=== PATIENT | male | born 1945 | race Caucasian/White ===

== ENCOUNTER 2021-08-05 11:51 | Inpatient (IN) | payer MEDICARE ==
[~2021-08-05] VITALS: Ht 167.6 cm; Wt 67.6 kg
[~2021-08-05 11:51] MED LIST: ? BP MED; ADVIL PRN; ASPI81CH PO; ASPI81EC; ASPI81EC PO; Cleocin HCl300 MG PO; DIAZ5 PO; HYDACE10B PO; HYDCHL12.5 PO; Norco 5-325 Ta1 EACH PO; OXYACE5T PO; [UNRECOGNIZED DRUG - REMARK]
[2021-08-05 12:29] LABS: Source, Urine Voided
[2021-08-05 12:33] LABS: Appearance, Urine Clear (Clear); Bilirubin, Urine Neg (Neg); Blood, Urine 1+ (Neg); Color, Urine Yellow (P-Yellow); Glucose Qualitative, Urine Neg (Neg); Ketones, Urine Neg (Neg); Leukocyte Esterase, Urine Neg (Neg); Nitrite, Urine Neg (Neg); Protein, Urine 2+ (Neg); Specific Gravity, Urine 1.015 (1.003-1.022); Urobilinogen, Urine NORM (Normal); pH, Urine 6.5 (5.0-8.0)
[2021-08-05 12:33] LABS: BASOPHILS ABSOLUTE AUTO 0.05 K/mm3 (0.00-0.23); BASOPHILS PERCENT AUTO 1 % (0-2); EOSINOPHILS ABSOLUTE AUTO 0.35 K/mm3 (0.00-0.68); EOSINOPHILS PERCENT AUTO 3 % (0-6); Hematocrit 45.5 % (37.0-53.0); Hemoglobin 14.9 g/dL (13.5-17.5); IMMATURE GRAN ABSOLUTE AUTO 0.06 K/mm3 (0.00-0.10); IMMATURE GRAN PERCENT AUTO 1 % (0-1); LYMPHOCYTES ABSOLUTE AUTO 1.54 K/mm3 (0.84-5.20); LYMPHOCYTES PERCENT AUTO 14 % (21-46); MONOCYTES ABSOLUTE AUTO 0.89 K/mm3 (0.16-1.47); MONOCYTES PERCENT AUTO 8 % (4-13); Mean Corpuscular HGB 30.7 pg (26.0-34.0); Mean Corpuscular HGB Conc 32.7 g/dL (31.5-36.5); Mean Corpuscular Volume 94 fL (80-100); Mean Platelet Volume 10.3 fL (9.1-12.4); NEUTROPHILS ABSOLUTE AUTO 7.88 K/mm3 (1.96-9.15); NEUTROPHILS PERCENT AUTO 73 % (41-73); Platelet Count 259 K/mm3 (150-400); RDW Coefficient Variation 13.5 % (11.7-14.2); RDW Standard Deviation 46.4 fL (35.1-46.3); Red Blood Cell Count 4.86 M/mm3 (4.30-5.90); White Blood Cell Count 10.77 K/mm3 (4.00-11.30)
[2021-08-05 12:44] LABS: Alanine Aminotransfer (ALT/SGP 25 U/L (12-78); Albumin, Blood 3.4 g/dL (3.4-5.0); Albumin/Globulin Ratio 0.8 (0.8-1.8); Alk Phos 73 U/L (50-136); Anion Gap 3 mmol/L (6-16); Aspartate Aminotrans (AST/SGOT 27 U/L (12-37); Bilirubin, Total 0.5 mg/dL (0.1-1.0); Blood Urea Nitrogen 19 mg/dL (8-24); Bun/Creatinine Ratio 17.8 (12.0-20.0); CO2, Blood 30 mmol/L (21-32); Calcium, Blood 9.3 mg/dL (8.5-10.1); Chloride, Blood 103 mmol/L (98-108); Creatinine, Blood 1.07 mg/dL (0.60-1.20); Globulin, Blood 4.5 g/dL (2.2-4.0); Glomerular Filtration Rate >60 (60-); Glucose, Blood 98 mg/dL (70-99); Potassium, Blood 4.2 mmol/L (3.5-5.5); Sodium, Blood 136 mmol/L (136-145); Total Protein, Blood 7.9 g/dL (6.4-8.2)
[2021-08-05 13:03] LABS: Red Blood Cells, Urine 0-2 /hpf (0-2); Squamous Epithelial Cells Rare /hpf (Few)
[2021-08-05 13:05] LABS: Bacteria Rare /hpf
[2021-08-05 15:31] LABS: International Normalized Ratio 0.99; Prothrombin Time Results 10.4 Sec (9.7-11.5)
--- NOTE | 2021-08-05 18:04 | NUR ---
1715 RECEIVED PT TO RM 359 VIA W/C FROM ER. PT ADMITTED FOR ACUTE CVA. RECEVIED REPORT FROM GRAY MENDEZ. PT WITH SUBJECTIVE NEURO CHANGES; L FOOT AND LH HAVING LESS COORDINATION THAN NORMAL, RESULTING IN FALL AT HOME. CT SHOWING ACUTE AND CHRONIC CHANGES WITH CAROTID @ 90% OCCLUSSION. PT IS A&O. PER PT AND REPORT, PT'S TODAY. PT REPORTED PROVIDING HEAVY CARE FOR HIS PAST FEW MONTHS. PT WITH BPH, HAVING DIFFICULTY VOIDING. SBA TO BTHRM USING FWW. HX HTN, WITH BP'S IN ER > 200 SBP. PER ER NURSE, NO TX FOR PERMISSIVE HTN. PT ADMITTED OBS. DR VELEZ NOTIFIED FOR DIET; REG DIET ORDERED. PT DENIED FURTHER NEEDS AT THIS TIME. PT NOW RESTING QUIETLY. CALL LT IN REACH.
--- NOTE | 2021-08-06 04:18 | NUR ---
SUMMARY NO NEW CHANGES NOTED. PT CONTINUES TO BE IMPULSIVE AT TIMES. PT ABLE TO AMBULATE TO BATHROOM WITH FWW. PT DENIES ANY SOB OR CX PAIN. PT HAS SLEPT T/O SHIFT. PT CURRENTLY SLEEPING IN NO DISTRESS. CALL LIGHT IN REACH AND BED ALARM ON.
[2021-08-06 04:56] LABS: BASOPHILS ABSOLUTE AUTO 0.06 K/mm3 (0.00-0.23); BASOPHILS PERCENT AUTO 1 % (0-2); EOSINOPHILS PERCENT AUTO 5 % (0-6); Hematocrit 47.8 % (37.0-53.0); Hemoglobin 15.9 g/dL (13.5-17.5); IMMATURE GRAN ABSOLUTE AUTO 0.06 K/mm3 (0.00-0.10); IMMATURE GRAN PERCENT AUTO 1 % (0-1); LYMPHOCYTES ABSOLUTE AUTO 1.28 K/mm3 (0.84-5.20); LYMPHOCYTES PERCENT AUTO 15 % (21-46); MONOCYTES ABSOLUTE AUTO 0.82 K/mm3 (0.16-1.47); MONOCYTES PERCENT AUTO 9 % (4-13); Mean Corpuscular HGB 30.4 pg (26.0-34.0); Mean Corpuscular HGB Conc 33.3 g/dL (31.5-36.5); Mean Corpuscular Volume 91 fL (80-100); Mean Platelet Volume 10.1 fL (9.1-12.4); NEUTROPHILS ABSOLUTE AUTO 6.18 K/mm3 (1.96-9.15); NEUTROPHILS PERCENT AUTO 70 % (41-73); Platelet Count 259 K/mm3 (150-400); RDW Coefficient Variation 13.3 % (11.7-14.2); RDW Standard Deviation 45.6 fL (35.1-46.3); Red Blood Cell Count 5.23 M/mm3 (4.30-5.90)
[2021-08-06 05:15] LABS: Anion Gap 6 mmol/L (6-16); Blood Urea Nitrogen 21 mg/dL (8-24); Bun/Creatinine Ratio 21.3 (12.0-20.0); CO2, Blood 27 mmol/L (21-32); Calcium, Blood 9.3 mg/dL (8.5-10.1); Chloride, Blood 102 mmol/L (98-108); Creatinine, Blood 0.99 mg/dL (0.60-1.20); Glomerular Filtration Rate >60 (60-); Glucose, Blood 114 mg/dL (70-99); Magnesium, Blood 2.1 mg/dL (1.6-2.4); Potassium, Blood 4.3 mmol/L (3.5-5.5); Sodium, Blood 135 mmol/L (136-145)
[2021-08-06 09:20] LABS: CHOL/HDL RATIO 3.7; Cholesterol 190 mg/dL (50-200); HDL Cholesterol 51 mg/dL (>39); LDL/HDL RATIO 2.4; Low Density Lipoprotein Chol 120 mg/dL (0-110); Triglycerides 93 mg/dL (30-160); Very Low Density Lipoprot Chol 18 mg/dL (6-32)
--- NOTE | 2021-08-06 16:16 | NUR ---
Shift Summary A/Ox3, pleasant/cooperative, impulsive. Was evaluated by PT this shift, patient independent in room. Had shower, tolerated well. Ambulating in hallway with FWW independently. Patient notified son RE hospital admission, son resides in town. C/O mild numbness to L hand, otherwise, fairly normal. L floor person slightly weaker than R floor person. No speech deficits. Calls appropriately for needs. No acute changes, WCTM.
--- NOTE | 2021-08-06 18:09 | NUR ---
DNR Patient requesting to be DNR. Discussed details of Full code vs DNR. Explained chest compression, possibility of aspirating stomach contents and having pneumonia, intubation, etc.. Patient verbalizes just wanting to be left alone if heart was to stop. Dr. Edmondson notified. Received orders for Palliative Care consult and change code status to DNR. Band verified with Miracle MENDEZ, placed to R wrist.
--- NOTE | 2021-08-07 06:25 | NUR ---
RELIEF CAPTAIN SUMMARY ADMITTED FOR ACUTE CVA WITH WEAKNESS ON THE LEFT. PT IS A DNR. PLAN FOR DISCHARGE HOME TODAY. PT HAS BEEN INDEPENDENT TO THE BATHROOM WITHOUT DIFFICULTY. STEADY GAIT. PT DENIES ANY CONCERNS.
[2021-08-07] MEDS ORDERED: ATOR40TA PO (11:05)
[2021-08-07] MEDS ORDERED: HYDCHL25 PO (11:06)
[2021-08-07] MEDS ORDERED: CLOP75 PO (11:06)
--- NOTE | 2021-08-07 12:13 | NUR ---
DISCHARGE SUMMARY PATIENT DISCHARGED TO HOME. PATIENT ALERT AND ORIENTED THIS SHIFT. PATIENT INDEPENDENT IN THE ROOM AND AMBULATING INDEPENDENTLY WITH FWW IN THE HALLWAY. PATIENT DEMONSTRATES STRENGTH IN THE LEFT EXTREMETIES, STATES THEY ARE MUCH IMPROVED. DISCHARGE AND MEDICATION INSTRUCTIONS REVIEWED WITH PATIENT. PATIENT STATES NO QUESTIONS AT THIS TIME. PATIENT'S SON TO THE ROOM FOR DISCHARGE. IV REMOVED PRIOR TO DISCHARGE. PATIENT TO VEHICLE VIA WHEELCHAIR.
== END 2021-08-07 11:55 | disposition home or self-care (01) | DRG 65 ==
LOC: ER 11:51 → MEDS 15:40
PROVIDERS: Emergency Medicine; Internal Medicine; ADMIT Internal Medicine
DX: I63.9 Cerebral infarction, unspecified (principal); G81.94 Hemiplegia, unspecified affecting left nondominant side; I10 Essential (primary) hypertension; I65.21 Occlusion and stenosis of right carotid artery; I48.0 Paroxysmal atrial fibrillation; Z95.820 Peripheral vascular angioplasty status with implants and grafts; Z88.0 Allergy status to penicillin; Z88.8 Allergy status to other drugs, medicaments and biological substances; Z79.82 Long term (current) use of aspirin; D17.9 Benign lipomatous neoplasm, unspecified; F17.210 Nicotine dependence, cigarettes, uncomplicated; Z71.6 Tobacco abuse counseling; Z23 Encounter for immunization; R29.810 Facial weakness; G89.29 Other chronic pain; M54.40 Lumbago with sciatica, unspecified side; Z98.1 Arthrodesis status
CPT/HCPCS: 36415; 70450; 70496; 70498; 71046; 80048; 80053; 80061; 81001; 83735; 83880; 85025; 85610; 85730; 93005; 93010; 97161; 99285-25; A9270; G0480; Q9967

== ENCOUNTER → 2021-10-14 | Outpatient (CLI) | payer MEDICARE ==
[~2021-10-14] MED LIST changes: +ATOR40TA PO; +CLOP75 PO; +HYDCHL25 PO
[2021-10-14 12:57] LABS: BASOPHILS ABSOLUTE AUTO 0.09 K/mm3 (0.00-0.23); BASOPHILS PERCENT AUTO 1 % (0-2); EOSINOPHILS ABSOLUTE AUTO 0.62 K/mm3 (0.00-0.68); EOSINOPHILS PERCENT AUTO 5 % (0-6); Hematocrit 38.2 % (37.0-53.0); Hemoglobin 12.8 g/dL (13.5-17.5); IMMATURE GRAN ABSOLUTE AUTO 0.29 K/mm3 (0.00-0.10); IMMATURE GRAN PERCENT AUTO 2 % (0-1); LYMPHOCYTES ABSOLUTE AUTO 1.65 K/mm3 (0.84-5.20); LYMPHOCYTES PERCENT AUTO 14 % (21-46); MONOCYTES ABSOLUTE AUTO 1.08 K/mm3 (0.16-1.47); MONOCYTES PERCENT AUTO 9 % (4-13); Mean Corpuscular HGB 30.8 pg (26.0-34.0); Mean Corpuscular HGB Conc 33.5 g/dL (31.5-36.5); Mean Corpuscular Volume 92 fL (80-100); Mean Platelet Volume 9.6 fL (9.1-12.4); NEUTROPHILS PERCENT AUTO 69 % (41-73); Platelet Count 415 K/mm3 (150-400); RDW Coefficient Variation 13.4 % (11.7-14.2); Red Blood Cell Count 4.16 M/mm3 (4.30-5.90); White Blood Cell Count 12.13 K/mm3 (4.00-11.30)
[2021-10-14 13:13] LABS: Alanine Aminotransfer (ALT/SGP 22 U/L (12-78); Albumin, Blood 3.4 g/dL (3.4-5.0); Albumin/Globulin Ratio 0.9 (0.8-1.8); Alk Phos 91 U/L (40-126); Anion Gap 8 mmol/L (6-16); Aspartate Aminotrans (AST/SGOT 16 U/L (12-37); Bilirubin, Total 0.4 mg/dL (0.1-1.0); Blood Urea Nitrogen 16 mg/dL (8-24); Bun/Creatinine Ratio 14.5 (12.0-20.0); CO2, Blood 30 mmol/L (21-32); Calcium, Blood 9.4 mg/dL (8.5-10.1); Chloride, Blood 97 mmol/L (98-108); Glomerular Filtration Rate >60 (60-); Glucose, Blood 119 mg/dL (70-99); Potassium, Blood 4.7 mmol/L (3.5-5.5); Sodium, Blood 135 mmol/L (136-145); Total Protein, Blood 7.4 g/dL (6.4-8.2)
[2021-10-14 13:17] LABS: Troponin I <0.017 ng/mL (0.000-0.040)
== END | disposition home or self-care (01) ==
LOC: LAB SHORT 12:50
PROVIDERS: Physician Assistant
DX: R07.9 Chest pain, unspecified (principal)
CPT/HCPCS: 80053; 83880; 84484; 85025

== ENCOUNTER 2021-11-22 21:50 | Emergency (ER) | payer MEDICARE ==
[~2021-11-22] VITALS: Ht 167.6 cm; Wt 74.4 kg
== END 2021-11-22 22:20 | disposition home or self-care (01) ==
LOC: ER 21:50
DX: R33.9 Retention of urine, unspecified (principal); I10 Essential (primary) hypertension; F17.210 Nicotine dependence, cigarettes, uncomplicated; Z79.82 Long term (current) use of aspirin; Z79.899 Other long term (current) drug therapy; Z88.8 Allergy status to other drugs, medicaments and biological substances
CPT/HCPCS: 51702; 99283-25

== ENCOUNTER 2022-02-21 10:06 | Day surgery (SDC) | payer MEDICARE ==
[~2022-02-21] VITALS: Ht 167.6 cm; Wt 73.0 kg
[~2022-02-21 10:06] MED LIST changes: +ELIQUIS5 M2 PO; +GLIP5 PO; +METF500 PO; +METO25ER PO; +Prinivil10 MG PO
[2022-02-21 11:28] LABS: BASOPHILS ABSOLUTE AUTO 0.06 K/mm3 (0.00-0.23); BASOPHILS PERCENT AUTO 1 % (0-2); EOSINOPHILS ABSOLUTE AUTO 0.77 K/mm3 (0.00-0.68); EOSINOPHILS PERCENT AUTO 7 % (0-6); Hematocrit 45.8 % (37.0-53.0); Hemoglobin 15.2 g/dL (13.5-17.5); IMMATURE GRAN ABSOLUTE AUTO 0.05 K/mm3 (0.00-0.10); IMMATURE GRAN PERCENT AUTO 1 % (0-1); LYMPHOCYTES ABSOLUTE AUTO 1.63 K/mm3 (0.84-5.20); LYMPHOCYTES PERCENT AUTO 15 % (21-46); MONOCYTES ABSOLUTE AUTO 0.69 K/mm3 (0.16-1.47); MONOCYTES PERCENT AUTO 6 % (4-13); Mean Corpuscular HGB 30.3 pg (26.0-34.0); Mean Corpuscular HGB Conc 33.2 g/dL (31.5-36.5); Mean Corpuscular Volume 91 fL (80-100); Mean Platelet Volume 10.1 fL (9.1-12.4); NEUTROPHILS ABSOLUTE AUTO 7.76 K/mm3 (1.96-9.15); NEUTROPHILS PERCENT AUTO 71 % (41-73); Platelet Count 356 K/mm3 (150-400); RDW Coefficient Variation 13.1 % (11.7-14.2); Red Blood Cell Count 5.01 M/mm3 (4.30-5.90); White Blood Cell Count 10.96 K/mm3 (4.00-11.30)
[2022-02-21 11:50] LABS: International Normalized Ratio 0.98; Prothrombin Time Results 10.3 Sec (9.7-11.5)
[2022-02-21 12:27] LABS: Bun/Creatinine Ratio 25.5 (12.0-20.0); Calcium, Blood 9.6 mg/dL (8.5-10.1); Creatinine, Blood 1.1 mg/dL (0.60-1.20); Potassium, Blood 4.5 mmol/L (3.5-5.5)
--- NOTE | 2022-02-21 14:12 | NUR ---
PT ARRIVED BACK TO RECOVERY ROOM IN BED. RIGHT FEMORAL GROIN SITE SOFT NON-TENDER WITH NO HEMATOMA, NO PULSATILE BLEEDING AND INTACT DRESSING. R PT DOPPLER PULSE. PT DENIES CHEST PAIN. CALL LIGHT IN REACH.
--- NOTE | 2022-02-21 14:39 | NUR ---
PT BROUGHT TO RECOVERY ROOM VIA GURNEY IN SUPINE POSITION, RIGHT FEMORAL ARTERIAL SITE APPEARS SOFT NON TENDER WITH NO BLEEDING OR OOZING NOTED. TRANSPARENT TEGADERM INTACT, DOPPLER PULSES TO RLE BOTH DP/PT. FOOT APPEARS COOL TO TOUCH, TIPS OF TOES APPEAR TO BE BLUE AND LATERAL SIDE OF FOOT. IKER KO RN COMPLETED PHYSICAL PREP THIS MORNING, STATED THAT FOOT APPEARS TO LOOK THE SAME. WARM BLANKET WRAPPED AROUND BOTH FEET. LEFT FOOT ALSO APPEARS TO HAVE BLUE COLOR AND COOL TO TOUCH, NO WOUNDS PRESENT. WILL CONTINUE TO MONITOR FOR CHANGES. CALL LIGHT IN REACH. SON UPDATED ON DISCHARGE INFORMATION. PT TOLERATED PO FLUIDS WITH NO DIFFICULTIES.
--- NOTE | 2022-02-21 15:26 | NUR ---
HOB RAISED TO 90 DEGREES, RIGHT GROIN SITE REMAINS SOFT NON TENDER. DRESSING STILL INTACT. PT PROVIDED WITH MEAL TRAY, TOLERATED WITH NO DIFFICULTIES. VSS. CALL LIGHT IN REACH. WILL CONTINUE TO MONITOR SITE. BLE REMAIN SAME LAST NOTED BY THIS RN.
--- NOTE | 2022-02-21 15:44 | NUR ---
DR PAZ UPDATED ABOUT INCREASED BP, VERBAL ORDER RECIEVED TO GIVE ORETIC 25 MG PO NOW, LISINOPRIL 10 MG PO NOW, TOPROL XL 25 MG PO NOW, AND HYDRALAZINE 5 MG IV NOW.
--- NOTE | 2022-02-21 16:13 | NUR ---
PT UP OUT OF BED, AMBULATES WITH CANE SLOWLY, RIGHT GROIN SITE REMAINS SOFT WITH NO BLEEDING OR OOZING NOTED. PT SITS IN CHAIR WHILE DRESSING SELF WITH LIMITED ASSISTANCE.
--- NOTE | 2022-02-21 16:31 | NUR ---
BP RECHECKED. PT VERBALIZED UNDERSTANDING OF D/C INSTRUCTIONS. PAPERWORK PROVIDED IN FOLDER. SON ARRIVED TO DRIVE PT HOME, ENCOURAGED TO FOLLOW UP WITH PROVIDER NEEDED OR WITH ANY QUESTIONS/CONCERNS. IV REMOVED FROM LAC WITH CATH INTACT, PRESSURE DRESSING APPLIED. TAKEN OUT TO PRIVATE VEHICLE WITH NO ACUTE DISTRESS NOTED. RIGHT GROIN SITE REMAINED SOFT NON TENDER WITH NO PAIN, DRESSING INTACT.
== END 2022-02-21 16:33 | disposition home or self-care (01) ==
LOC: MHTC 10:06
PROVIDERS: Radiology Diagnostic Radiology
DX: E11.51 Type 2 diabetes mellitus with diabetic peripheral angiopathy without gangrene (principal); I70.213 Atherosclerosis of native arteries of extremities with intermittent claudication, bilateral legs; I12.9 Hypertensive chronic kidney disease with stage 1 through stage 4 chronic kidney disease, or unspecified chronic kidney disease; E11.22 Type 2 diabetes mellitus with diabetic chronic kidney disease; N18.30 Chronic kidney disease, stage 3 unspecified; F17.200 Nicotine dependence, unspecified, uncomplicated; Z86.73 Personal history of transient ischemic attack (TIA), and cerebral infarction without residual deficits; Z88.8 Allergy status to other drugs, medicaments and biological substances
CPT/HCPCS: 37220; 37227; 75625; 75716; 75774; 76937; 80048; 85025; 85347; 85610; 99152; 99153; A9270; C1714; C1725; C1760; C1769; C1874; C1887; C1894; C2623; J0360; J1644; J2250; J3010; J7030; J7040; Q9967

== ENCOUNTER 2022-03-07 10:44 | Day surgery (SDC) | payer MEDICARE ==
[~2022-03-07] VITALS: Ht 167.6 cm; Wt 70.0 kg
[~2022-03-07 10:44] MED LIST changes: +Chantix1 MG PO
[2022-03-07 11:30] LABS: BASOPHILS ABSOLUTE AUTO 0.07 K/mm3 (0.00-0.23); BASOPHILS PERCENT AUTO 1 % (0-2); EOSINOPHILS ABSOLUTE AUTO 0.58 K/mm3 (0.00-0.68); EOSINOPHILS PERCENT AUTO 5 % (0-6); Hematocrit 41.6 % (37.0-53.0); Hemoglobin 13.5 g/dL (13.5-17.5); IMMATURE GRAN ABSOLUTE AUTO 0.07 K/mm3 (0.00-0.10); IMMATURE GRAN PERCENT AUTO 1 % (0-1); LYMPHOCYTES ABSOLUTE AUTO 1.47 K/mm3 (0.84-5.20); LYMPHOCYTES PERCENT AUTO 13 % (21-46); MONOCYTES ABSOLUTE AUTO 0.75 K/mm3 (0.16-1.47); MONOCYTES PERCENT AUTO 7 % (4-13); Mean Corpuscular HGB 30.3 pg (26.0-34.0); Mean Corpuscular HGB Conc 32.5 g/dL (31.5-36.5); Mean Corpuscular Volume 94 fL (80-100); Mean Platelet Volume 9.5 fL (9.1-12.4); NEUTROPHILS ABSOLUTE AUTO 8.35 K/mm3 (1.96-9.15); NEUTROPHILS PERCENT AUTO 74 % (41-73); Platelet Count 383 K/mm3 (150-400); RDW Coefficient Variation 13.2 % (11.7-14.2); RDW Standard Deviation 45.4 fL (35.1-46.3); Red Blood Cell Count 4.45 M/mm3 (4.30-5.90); White Blood Cell Count 11.29 K/mm3 (4.00-11.30)
[2022-03-07 11:40] LABS: International Normalized Ratio 1.02; Prothrombin Time Results 10.7 Sec (9.7-11.5)
[2022-03-07 11:41] LABS: Bun/Creatinine Ratio 15.6 (12.0-20.0); Calcium, Blood 9.2 mg/dL (8.5-10.1); Creatinine, Blood 1.09 mg/dL (0.60-1.20); Potassium, Blood 4.3 mmol/L (3.5-5.5)
--- NOTE | 2022-03-07 13:55 | NUR ---
PT TO RECOVERY ROOM POST PROCEDURE. PT DROWSY, BUT EASILY ROUSABLE, ANSWERING QUESTIONS APPROPRIATELY; DENIES PAIN POST PROCEDURE. MONITOR AFIB 70'S, B/P 153/87, AFEBRILE, SPO2 96% RA. L GROIN NO SWELLING/HEMATOMA, TEGADERM DRSG INTACT; ANGIO SEAL DEPLOYED, LLE PULSES DP 2+ PT DOP, RLE PULSES 1+ X 2.
--- NOTE | 2022-03-07 15:05 | NUR ---
PT'S HOB ELEVATED, SITE REMAINS UNCHANGED. PT EATING LUNCH WITHOUT ISSUE.
--- NOTE | 2022-03-07 16:15 | NUR ---
PT AMB AROUND RECOVERY ROOM WITHOUT ISSUE, SITE UNCHANGED. PT DRESSED SELF WITHOUT ISSUE, SITE UNCHANGED; IV REMOVED-CANNULA INTACT.
--- NOTE | 2022-03-07 16:30 | NUR ---
PT AND SON RECEIVED DISCHARGE INSTRUCTIONS, MED LIST AND AFTER CARE INSTRUCTIONS; VERBALIZED GOOD UNDERSTANDING. PT LEFT FACILITY VIA W/C, CONDITION STABLE.
== END 2022-03-07 16:21 | disposition home or self-care (01) ==
LOC: MHTC 10:44
PROVIDERS: Radiology Diagnostic Radiology
DX: E11.51 Type 2 diabetes mellitus with diabetic peripheral angiopathy without gangrene (principal); I70.213 Atherosclerosis of native arteries of extremities with intermittent claudication, bilateral legs; E11.22 Type 2 diabetes mellitus with diabetic chronic kidney disease; I12.9 Hypertensive chronic kidney disease with stage 1 through stage 4 chronic kidney disease, or unspecified chronic kidney disease; N18.30 Chronic kidney disease, stage 3 unspecified; F17.200 Nicotine dependence, unspecified, uncomplicated; Z79.52 Long term (current) use of systemic steroids; Z79.84 Long term (current) use of oral hypoglycemic drugs; Z79.01 Long term (current) use of anticoagulants
CPT/HCPCS: 37225; 75716; 75774; 76937; 80048; 85025; 85347; 85610; 93005; 93010; 99152; 99153; A9270; C1714; C1725; C1760; C1769; C1887; C1894; C2623; J1644; J2250; J3010; J7030; J7040; Q9967

== ENCOUNTER 2023-01-01 02:35 | Inpatient (IN) | payer MEDICARE ==
[~2023-01-01] VITALS: Ht 167.6 cm; Wt 65.8 kg
[2023-01-01 03:14] LABS: BASOPHILS ABSOLUTE AUTO 0.05 K/mm3 (0.00-0.23); BASOPHILS PERCENT AUTO 0 % (0-2); EOSINOPHILS PERCENT AUTO 2 % (0-6); Hematocrit 37.7 % (37.0-53.0); Hemoglobin 12.1 g/dL (13.5-17.5); IMMATURE GRAN ABSOLUTE AUTO 0.07 K/mm3 (0.00-0.10); IMMATURE GRAN PERCENT AUTO 1 % (0-1); LYMPHOCYTES ABSOLUTE AUTO 0.84 K/mm3 (0.84-5.20); LYMPHOCYTES PERCENT AUTO 6 % (21-46); MONOCYTES ABSOLUTE AUTO 0.92 K/mm3 (0.16-1.47); MONOCYTES PERCENT AUTO 6 % (4-13); Mean Corpuscular HGB 29.5 pg (26.0-34.0); Mean Corpuscular HGB Conc 32.1 g/dL (31.5-36.5); Mean Corpuscular Volume 92 fL (80-100); Mean Platelet Volume 10.3 fL (9.1-12.4); NEUTROPHILS ABSOLUTE AUTO 12.54 K/mm3 (1.96-9.15); NEUTROPHILS PERCENT AUTO 85 % (41-73); Platelet Count 274 K/mm3 (150-400); RDW Standard Deviation 47.8 fL (35.1-46.3); White Blood Cell Count 14.72 K/mm3 (4.00-11.30)
[2023-01-01 03:14] LABS: Source, Urine Foley catheter
[2023-01-01 03:16] LABS: Bilirubin, Urine Neg (Neg); Blood, Urine 2+ (Neg); Glucose Qualitative, Urine Neg (Neg); Ketones, Urine Neg (Neg); Leukocyte Esterase, Urine 3+ (Neg); Nitrite, Urine Pos (Neg); Protein, Urine 4+ (Neg); Specific Gravity, Urine 1.015 (1.003-1.022); Urobilinogen, Urine NORM (Normal)
[2023-01-01 03:18] LABS: Appearance, Urine Turbid (Clear); Color, Urine Yellow (P-Yellow)
[2023-01-01 03:22] LABS: Amorphous Heavy (0-Heavy); Bacteria Many /hpf; Mucus Heavy (0-Heavy); Red Blood Cells, Urine 0-2 /hpf (0-2); Squamous Epithelial Cells Not Seen /hpf (Few); Uric Acid Crystals Few /hpf; White Blood Cells, Urine TNTC /hpf (0-5)
[2023-01-01 03:32] LABS: Albumin/Globulin Ratio 0.7 (0.8-1.8); Bilirubin, Total 0.3 mg/dL (0.1-1.0); Bun/Creatinine Ratio 21.6 (12.0-20.0); Creatinine, Blood 1.39 mg/dL (0.60-1.20); Globulin, Blood 4.2 g/dL (2.2-4.0); Total Protein, Blood 7.2 g/dL (6.4-8.2)
[2023-01-01] MEDS ORDERED: GABA100 PO (04:02)
[2023-01-01] MEDS ORDERED: DONEPEZIL HCL10 MG PO (04:03)
[2023-01-01] MEDS ORDERED: OXYB5 PO (04:03)
[2023-01-01 04:22] LABS: Influenza A, PCR NEGATIVE (NEGATIVE); Influenza B, PCR NEGATIVE (NEGATIVE); Resp Syncytial Virus, PCR NEGATIVE (NEGATIVE); SARS-Cov-2 (COVID-19) PCR, MMC NEGATIVE (NEGATIVE)
--- NOTE | 2023-01-01 16:12 | NUR ---
SHIFT SUMMARY COPD EXAC PT REPORTS FEELING MUCH BETTER THAN YESTERDAY WHEN HE ARRIVED. HE DENIES ANY BLADDER PAIN, CATHETER REMAINS PATENT. URINE WITH SEDIMENT PRESENT. PT TOLERATING 2L NASAL CANULA WELL, DENIES SOB UNLESS COUGHING ATTEMPTING TO MOVE SPUTUM. RECOVERS QUICKLY. TOLERATING PO WELL. USING CALL LIGHT APPROPRIATLY. PLAN IS TO TRANSFER PATIENT TO MEDICAL FLOOR, REPORT GIVEN TO RECIEVING RN. WILL TRANSFER PATIENT AND BELONGINGS ONCE ROOM IS CLEAN.
--- NOTE | 2023-01-01 16:28 | NUR ---
TRANSFER TO [facility]. PT ORIENTED TO NEW ROOM. ON THE PHONE WITH HIS SON WHEN TRANSFERED, SO FAMILY IS AWARE OF TRANSFER. PT DENIES NEEDS AT THIS TIME. CALL LIGHT IN REACH.
[2023-01-02 05:54] LABS: BASOPHILS ABSOLUTE AUTO 0.02 K/mm3 (0.00-0.23); BASOPHILS PERCENT AUTO 0 % (0-2); EOSINOPHILS PERCENT AUTO 0 % (0-6); Hematocrit 35.9 % (37.0-53.0); Hemoglobin 11.6 g/dL (13.5-17.5); IMMATURE GRAN ABSOLUTE AUTO 0.08 K/mm3 (0.00-0.10); IMMATURE GRAN PERCENT AUTO 1 % (0-1); LYMPHOCYTES ABSOLUTE AUTO 1.29 K/mm3 (0.84-5.20); LYMPHOCYTES PERCENT AUTO 8 % (21-46); MONOCYTES ABSOLUTE AUTO 1.19 K/mm3 (0.16-1.47); MONOCYTES PERCENT AUTO 7 % (4-13); Mean Corpuscular HGB 29.8 pg (26.0-34.0); Mean Corpuscular HGB Conc 32.3 g/dL (31.5-36.5); Mean Corpuscular Volume 92 fL (80-100); Mean Platelet Volume 10.2 fL (9.1-12.4); NEUTROPHILS ABSOLUTE AUTO 13.97 K/mm3 (1.96-9.15); NEUTROPHILS PERCENT AUTO 84 % (41-73); Platelet Count 274 K/mm3 (150-400); RDW Coefficient Variation 14.1 % (11.7-14.2); RDW Standard Deviation 47.9 fL (35.1-46.3); Red Blood Cell Count 3.89 M/mm3 (4.30-5.90); White Blood Cell Count 16.55 K/mm3 (4.00-11.30)
--- NOTE | 2023-01-02 05:54 | NUR ---
SUMMARY: PT A/OX4, CALLS APPROPRIATELY TO SPECIFY NEEDS AND IS PLEASANT AND COOPERATIVE W/CARE. HE SLEPT MAJORITY OF NOCTE, REPOSITIONS SELF AD RUFINO AND IS SBA OOB. CHRONIC CRUZ IS PATENT/DRAINING YELLOW URINE W/SEDIMENT. IV ABX BEING RECEIVED ON DAY SHIFT FOR UTI. HE REMAINS ON 2L O2 VIA NC W/COARSE LS AND MOIST HACKING COUGH. PT DENIES PAIN AND ALL OTHER COMPLAINTS. NO ACUTE CHANGES, VSS/AFEBRILE. WCTM AND REPORT TO DAY RN.
[2023-01-02 06:17] LABS: Albumin, Blood 2.7 g/dL (3.4-5.0); Anion Gap 1 mmol/L (6-16); Blood Urea Nitrogen 37 mg/dL (8-24); Bun/Creatinine Ratio 23.9 (12.0-20.0); CO2, Blood 30 mmol/L (21-32); Calcium, Blood 9.1 mg/dL (8.5-10.1); Chloride, Blood 103 mmol/L (98-108); Creatinine, Blood 1.55 mg/dL (0.60-1.20); Glomerular Filtration Rate 45 (60-); Glucose, Blood 157 mg/dL (70-99); Magnesium, Blood 2.2 mg/dL (1.6-2.4); Phosphorus, Blood 3.6 mg/dL (2.5-4.9); Sodium, Blood 134 mmol/L (136-145)
--- NOTE | 2023-01-02 18:03 | NUR ---
SHIFT SUMMARY PT AMBULATING WELL WITH MINIMAL ASSIST IN THE HALLWAY. O2 TUBING TITRATED TO 1L VIA NC AND PT SATING AT 93%. NO OTHER ACUTE CHANGES IN ASSESSMENT AT THIS TIME. PLAN FOR POSSIBLE DISCHARGE TOMORROW. PT EATING DINNER IN ROOM. DENIES OTHER NEEDS AT THIS TIME. CALL LIGHT IN REACH.
--- NOTE | 2023-01-03 06:01 | NUR ---
INCREASE PT O2 TO 4L AFTER PT FELT HE WASNT ABLE TO CATCH HIS BREATH AND INCREASE IN COUGHING, WITH MINIMAL PRODUCTION. SOME INCREASE IN SPUTUM AFTER BREATHING TREATMENT.
[2023-01-03 08:35] LABS: BASOPHILS ABSOLUTE AUTO 0.06 K/mm3 (0.00-0.23); BASOPHILS PERCENT AUTO 1 % (0-2); EOSINOPHILS ABSOLUTE AUTO 0.46 K/mm3 (0.00-0.68); EOSINOPHILS PERCENT AUTO 4 % (0-6); Hematocrit 38.2 % (37.0-53.0); Hemoglobin 11.9 g/dL (13.5-17.5); IMMATURE GRAN ABSOLUTE AUTO 0.07 K/mm3 (0.00-0.10); IMMATURE GRAN PERCENT AUTO 1 % (0-1); LYMPHOCYTES PERCENT AUTO 19 % (21-46); MONOCYTES ABSOLUTE AUTO 0.93 K/mm3 (0.16-1.47); MONOCYTES PERCENT AUTO 7 % (4-13); Mean Corpuscular HGB 29.8 pg (26.0-34.0); Mean Corpuscular HGB Conc 31.2 g/dL (31.5-36.5); Mean Corpuscular Volume 96 fL (80-100); Mean Platelet Volume 10.4 fL (9.1-12.4); NEUTROPHILS ABSOLUTE AUTO 8.81 K/mm3 (1.96-9.15); NEUTROPHILS PERCENT AUTO 69 % (41-73); Platelet Count 302 K/mm3 (150-400); RDW Coefficient Variation 14.4 % (11.7-14.2); RDW Standard Deviation 50.3 fL (35.1-46.3); White Blood Cell Count 12.73 K/mm3 (4.00-11.30)
[2023-01-03 09:09] LABS: Albumin, Blood 3.2 g/dL (3.4-5.0); Anion Gap 4 mmol/L (6-16); Blood Urea Nitrogen 41 mg/dL (8-24); Bun/Creatinine Ratio 26.5 (12.0-20.0); CO2, Blood 28 mmol/L (21-32); Calcium, Blood 9.2 mg/dL (8.5-10.1); Chloride, Blood 105 mmol/L (98-108); Creatinine, Blood 1.55 mg/dL (0.60-1.20); Glomerular Filtration Rate 45 (60-); Glucose, Blood 137 mg/dL (70-99); Potassium, Blood 4.7 mmol/L (3.5-5.5); Sodium, Blood 137 mmol/L (136-145)
--- NOTE | 2023-01-03 16:20 | NUR ---
SPN SHIFT SUMMARY Pt WAS SITTING BED SIDE THIS AM, TRIPOD SITTING TO BREATHE. Pt GOT UP TO RECLINER IN ROOM AND STILL MAINTAINED TRIPOD FOR BREATHING. THIS DISASSEMBLER CALLED RT FOR Pt TO GET NEB. THAT HELPED Pt SOME, Pt CONTINUES TO COUGH HARD WITH LITTLE SPEUTUM THIS DISASSEMBLER TOOK VERBAL ORDER FROM MD FOR DIANE PEARLS GIVEN AT 1330 ALONG WITH ORDER FOR FLUTTER VALVE FROM RT. Pt REPORTS THAT DIANE PERALS DID HELP HIM. Pt REMAINS INDEPENDENT IN THE ROOM, CALL LIGHT IN REACH, WILL CONTINUE TO PROVIDE CARE AND MONITOR.
[2023-01-04] MEDS ORDERED: Acetaminophen650 M1 PO (14:02)
[2023-01-04] MEDS ORDERED: BENZ100A PO (14:03)
[2023-01-04] MEDS ORDERED: GUAI600T33 PO (14:03)
[2023-01-04] MEDS ORDERED: IPRAT-ALBUT 0.5-3 ML INH (14:04)
[2023-01-04] MEDS ORDERED: AMOCLA875 PO (14:07)
[2023-01-04] MEDS ORDERED: VISBIOME 112.51 EACH PO (14:07)
[2023-01-04] MEDS ORDERED: METPRE4 PO (14:07)
[2023-01-04] MEDS ORDERED: AZIT500 PO (14:08)
--- NOTE | 2023-01-04 16:46 | NUR ---
DISCHARGE PT DISCHARGED TO HOME HEALTH. FAMILY AT BEDSIDE. ALERT AND ORIENTED X4. 2L NC. DISCHARGE INSTRUCTIONS DISCUSSED WITH PT AND FAMILY.
== END 2023-01-04 16:25 | disposition home health service (06) | DRG 698 ==
LOC: ER 02:35 → SURS 02:36 → MEDS 16:24
PROVIDERS: Emergency Medicine; Student in an Organized Health Care Education/Training Program; ADMIT Family Medicine
PROC: 0T9B70Z Drainage of Bladder with Drainage Device, Via Natural or Artificial Opening (ICD-10-PCS; principal; 2023-01-03)
DX: T83.511A Infection and inflammatory reaction due to indwelling urethral catheter, initial encounter (principal); G93.41 Metabolic encephalopathy; J18.9 Pneumonia, unspecified organism; J96.01 Acute respiratory failure with hypoxia; N10 Acute pyelonephritis; J44.0 Chronic obstructive pulmonary disease with (acute) lower respiratory infection; J44.1 Chronic obstructive pulmonary disease with (acute) exacerbation; Z20.822 Contact with and (suspected) exposure to COVID-19; Z28.21 Immunization not carried out because of patient refusal; F17.210 Nicotine dependence, cigarettes, uncomplicated; M54.9 Dorsalgia, unspecified; I12.9 Hypertensive chronic kidney disease with stage 1 through stage 4 chronic kidney disease, or unspecified chronic kidney disease; N18.30 Chronic kidney disease, stage 3 unspecified; E11.22 Type 2 diabetes mellitus with diabetic chronic kidney disease; R79.89 Other specified abnormal findings of blood chemistry; B96.4 Proteus (mirabilis) (morganii) as the cause of diseases classified elsewhere; G89.29 Other chronic pain; Z98.1 Arthrodesis status; Z95.5 Presence of coronary angioplasty implant and graft; Z98.890 Other specified postprocedural states; Z88.8 Allergy status to other drugs, medicaments and biological substances; Z79.01 Long term (current) use of anticoagulants; Z79.82 Long term (current) use of aspirin; Z79.84 Long term (current) use of oral hypoglycemic drugs; Z79.899 Other long term (current) drug therapy; Y84.6 Urinary catheterization as the cause of abnormal reaction of the patient, or of later complication, without mention of misadventure at the time of the procedure
CPT/HCPCS: 0241U; 36415; 51702; 71045; 80053; 80069; 81001; 82947; 83036; 83735; 83880; 84145; 85025; 87077; 87086; 87186; 93005; 93010; 94640; 94664; 94760; 94761; 96365-59; 96366; 96375-59; 97110; 97116; 97162; 97165; 97530; 97530-CQ; 99285-25; A9270; C8929; G0378; J0456; J0696; J2930; J7050; J7509; Q9957

== ENCOUNTER 2023-06-02 02:35 | Emergency (ER) | payer MEDICARE ==
[~2023-06-02] VITALS: Ht 167.6 cm; Wt 63.5 kg
[~2023-06-02 02:35] MED LIST changes: +AMOCLA875 PO; +AZIT500 PO; +Acetaminophen650 M1 PO; +BENZ100A PO; +DONEPEZIL HCL10 MG PO; +GABA100 PO; +GUAI600T33 PO; +IPRAT-ALBUT 0.5-3 ML INH; +METPRE4 PO; +OXYB5 PO; +VISBIOME 112.51 EACH PO
[2023-06-02 03:54] LABS: BASOPHILS ABSOLUTE AUTO 0.05 K/mm3 (0.00-0.23); BASOPHILS PERCENT AUTO 1 % (0-2); EOSINOPHILS PERCENT AUTO 12 % (0-6); Hematocrit 44.7 % (37.0-53.0); Hemoglobin 14.5 g/dL (13.5-17.5); IMMATURE GRAN ABSOLUTE AUTO 0.04 K/mm3 (0.00-0.10); IMMATURE GRAN PERCENT AUTO 0 % (0-1); LYMPHOCYTES PERCENT AUTO 14 % (21-46); MONOCYTES ABSOLUTE AUTO 0.82 K/mm3 (0.16-1.47); MONOCYTES PERCENT AUTO 8 % (4-13); Mean Corpuscular HGB 29.5 pg (26.0-34.0); Mean Corpuscular HGB Conc 32.4 g/dL (31.5-36.5); Mean Corpuscular Volume 91 fL (80-100); Mean Platelet Volume 11.2 fL (9.1-12.4); NEUTROPHILS PERCENT AUTO 65 % (41-73); Platelet Count 253 K/mm3 (150-400); RDW Coefficient Variation 13.8 % (11.7-14.2); RDW Standard Deviation 46.6 fL (35.1-46.3); Red Blood Cell Count 4.92 M/mm3 (4.30-5.90); White Blood Cell Count 10.51 K/mm3 (4.00-11.30)
[2023-06-02 04:23] LABS: Albumin, Blood 3.4 g/dL (3.4-5.0); Albumin/Globulin Ratio 0.8 (0.8-1.8); Bilirubin, Total 0.4 mg/dL (0.1-1.0); Bun/Creatinine Ratio 13.2 (12.0-20.0); Calcium, Blood 9.4 mg/dL (8.5-10.1); Creatinine, Blood 1.29 mg/dL (0.60-1.20); Globulin, Blood 4.3 g/dL (2.2-4.0); Potassium, Blood 3.8 mmol/L (3.5-5.5); Total Protein, Blood 7.7 g/dL (6.4-8.2)
[2023-06-02 04:53] LABS: Influenza A, PCR NEGATIVE (NEGATIVE); Influenza B, PCR NEGATIVE (NEGATIVE); Resp Syncytial Virus, PCR NEGATIVE (NEGATIVE); SARS-Cov-2 (COVID-19) PCR, MMC NEGATIVE (NEGATIVE)
[2023-06-02 05:06] VITALS: BP 167/103
== END 2023-06-02 08:03 | disposition home or self-care (01) ==
LOC: ER 02:35
PROVIDERS: Student in an Organized Health Care Education/Training Program
DX: J44.1 Chronic obstructive pulmonary disease with (acute) exacerbation (principal); Z88.8 Allergy status to other drugs, medicaments and biological substances; Z79.899 Other long term (current) drug therapy; Z79.82 Long term (current) use of aspirin; Z79.84 Long term (current) use of oral hypoglycemic drugs; I10 Essential (primary) hypertension; F17.210 Nicotine dependence, cigarettes, uncomplicated
CPT/HCPCS: 0241U; 71046; 80053; 84484; 85025; 93005; 93010; 94644; 94645; 94664; 99285-25

== ENCOUNTER 2023-06-09 18:45 | Observation (INO) | payer MEDICARE ==
[~2023-06-09] VITALS: Ht 167.6 cm; Wt 61.9 kg
[2023-06-09 19:16] LABS: BASOPHILS ABSOLUTE AUTO 0.05 K/mm3 (0.00-0.23); BASOPHILS PERCENT AUTO 1 % (0-2); EOSINOPHILS ABSOLUTE AUTO 1.35 K/mm3 (0.00-0.68); EOSINOPHILS PERCENT AUTO 14 % (0-6); Hematocrit 42.8 % (37.0-53.0); Hemoglobin 13.5 g/dL (13.5-17.5); IMMATURE GRAN ABSOLUTE AUTO 0.02 K/mm3 (0.00-0.10); IMMATURE GRAN PERCENT AUTO 0 % (0-1); LYMPHOCYTES ABSOLUTE AUTO 2.32 K/mm3 (0.84-5.20); LYMPHOCYTES PERCENT AUTO 23 % (21-46); MONOCYTES PERCENT AUTO 8 % (4-13); Mean Corpuscular HGB 29.3 pg (26.0-34.0); Mean Corpuscular HGB Conc 31.5 g/dL (31.5-36.5); Mean Corpuscular Volume 93 fL (80-100); Mean Platelet Volume 10.5 fL (9.1-12.4); NEUTROPHILS ABSOLUTE AUTO 5.48 K/mm3 (1.96-9.15); NEUTROPHILS PERCENT AUTO 55 % (41-73); Platelet Count 258 K/mm3 (150-400); RDW Coefficient Variation 14.3 % (11.7-14.2); RDW Standard Deviation 49.4 fL (35.1-46.3); White Blood Cell Count 10.02 K/mm3 (4.00-11.30)
[2023-06-09] MEDS ORDERED: Prinivil10 MG PO (19:23)
[2023-06-09 19:33] LABS: International Normalized Ratio 0.99; Prothrombin Time Results 10.4 Sec (9.7-11.5)
[2023-06-09 19:48] LABS: Albumin, Blood 3.3 g/dL (3.4-5.0); Albumin/Globulin Ratio 0.8 (0.8-1.8); Bilirubin, Total 0.3 mg/dL (0.1-1.0); Bun/Creatinine Ratio 13.3 (12.0-20.0); Creatinine, Blood 1.28 mg/dL (0.60-1.20); Globulin, Blood 4.2 g/dL (2.2-4.0); Phosphorus, Blood 2.7 mg/dL (2.5-4.9); Potassium, Blood 4.1 mmol/L (3.5-5.5); Total Protein, Blood 7.5 g/dL (6.4-8.2)
[2023-06-09 20:21] LABS: Influenza A, PCR NEGATIVE (NEGATIVE); Influenza B, PCR NEGATIVE (NEGATIVE); Resp Syncytial Virus, PCR NEGATIVE (NEGATIVE); SARS-Cov-2 (COVID-19) PCR, MMC NEGATIVE (NEGATIVE)
[2023-06-09 23:36] VITALS: BP 163/76
[2023-06-10 04:16] LABS: BASOPHILS ABSOLUTE AUTO 0.02 K/mm3 (0.00-0.23); BASOPHILS PERCENT AUTO 0 % (0-2); EOSINOPHILS ABSOLUTE AUTO 0.01 K/mm3 (0.00-0.68); EOSINOPHILS PERCENT AUTO 0 % (0-6); Hematocrit 40.6 % (37.0-53.0); Hemoglobin 12.8 g/dL (13.5-17.5); IMMATURE GRAN ABSOLUTE AUTO 0.01 K/mm3 (0.00-0.10); IMMATURE GRAN PERCENT AUTO 0 % (0-1); LYMPHOCYTES ABSOLUTE AUTO 0.33 K/mm3 (0.84-5.20); LYMPHOCYTES PERCENT AUTO 4 % (21-46); MONOCYTES ABSOLUTE AUTO 0.03 K/mm3 (0.16-1.47); MONOCYTES PERCENT AUTO 0 % (4-13); Mean Corpuscular HGB 29.2 pg (26.0-34.0); Mean Corpuscular HGB Conc 31.5 g/dL (31.5-36.5); Mean Corpuscular Volume 93 fL (80-100); Mean Platelet Volume 10.1 fL (9.1-12.4); NEUTROPHILS ABSOLUTE AUTO 7.19 K/mm3 (1.96-9.15); NEUTROPHILS PERCENT AUTO 95 % (41-73); Platelet Count 236 K/mm3 (150-400); RDW Coefficient Variation 14.2 % (11.7-14.2); RDW Standard Deviation 48.7 fL (35.1-46.3); Red Blood Cell Count 4.38 M/mm3 (4.30-5.90); White Blood Cell Count 7.59 K/mm3 (4.00-11.30)
[2023-06-10 04:19] VITALS: BP 136/74
--- NOTE | 2023-06-10 04:34 | NUR ---
SHIFT SUMMARY. NERI WAS NEWLY ADMITTED FROM THE ED THIS SHIFT AND ARRIVED AROUND 2340. HE WAS ALERT AND FULLY ORIENTED, BUT WAS RAMBLING AND MUMBLING. PT IS COOPERATIVE BUT LABILE. PT IS HERE FOR COPD EXACERBATION AND IS ON 3L O2 VIA NC. HIS TROPONIN WAS ELEVATED AND HAS BEEN TRENDING DOWN. HE IS INDEPENDENT AT BASELINE, SBA D/T SOB. HE IS CURRENTLY RESTING IN BED WITH HIS CALL LIGHT IN REACH.
[2023-06-10 04:45] LABS: Albumin/Globulin Ratio 0.8 (0.8-1.8); Bilirubin, Total 0.3 mg/dL (0.1-1.0); Bun/Creatinine Ratio 16.5 (12.0-20.0); Calcium, Blood 8.9 mg/dL (8.5-10.1); Creatinine, Blood 1.15 mg/dL (0.60-1.20); Potassium, Blood 4.3 mmol/L (3.5-5.5)
--- NOTE | 2023-06-10 05:20 | NUR ---
THIS BOWLING BALL MOLD ASSEMBLER HAS REVIEWED AND AGEES WITH ALL NOTES AND ASSESSMENTS BY VANESSA KELLER.
[2023-06-10 06:17] LABS: Source, Urine Foley catheter
[2023-06-10 06:24] LABS: Appearance, Urine Hazy (Clear); Bilirubin, Urine Neg (Neg); Blood, Urine 5+ (Neg); Color, Urine Yellow (P-Yellow); Glucose Qualitative, Urine 3+ (Neg); Ketones, Urine 1+ (Neg); Leukocyte Esterase, Urine 2+ (Neg); Nitrite, Urine Pos (Neg); Protein, Urine 3+ (Neg); Specific Gravity, Urine 1.025 (1.003-1.022); Urobilinogen, Urine NORM (Normal)
[2023-06-10 06:39] LABS: Bacteria Mod /hpf; Granular Casts 0-2 /lpf (0); Red Blood Cells, Urine 25-50 /hpf (0-2); Squamous Epithelial Cells Not Seen /hpf (Few)
[2023-06-10 06:40] LABS: Amorphous Light (0-Heavy); Transitional Epithelial Cells Rare /hpf (0-Rare)
[2023-06-10 07:23] VITALS: BP 150/85
[2023-06-10] MEDS ORDERED: GUAI600T33 PO (13:24)
[2023-06-10] MEDS ORDERED: METPRE4 PO (13:27)
[2023-06-10] MEDS ORDERED: AZIT250 PO (13:29)
--- NOTE | 2023-06-10 14:56 | NUR ---
DISCHARGE SUMMARY PATIENT DISCHARGED THIS SHIFT, DRIVING HIMSELF. DISCHARGE PACKET GIVEN, NO QUESTIONS AT THIS TIME. MEDS FAXED TO [facility] [place]. REPORTED BY ANOTHER STAFF WHILE PRIMARY WAS ON LUNCH, AT DISCHARGE PATIENT DISCONNECTED HIS CRUZ FROM BAG, PLUGGED END WITH SOME PIECE OF PLASTIC, STATED HE DOES THIS ALL THE TIME...EDUCATION WAS PROVIDED WAS A LEG BAG AND ASSISTANCE TO APPLY LEG BAG. IV REMOVED PRIOR TO DISCHARGE.
== END 2023-06-10 14:23 | disposition home or self-care (01) ==
LOC: ER 18:45 → MEDS 18:46
PROVIDERS: Emergency Medicine; Family Medicine; ADMIT Hospitalist
DX: J44.1 Chronic obstructive pulmonary disease with (acute) exacerbation (principal); R77.8 Other specified abnormalities of plasma proteins; I12.9 Hypertensive chronic kidney disease with stage 1 through stage 4 chronic kidney disease, or unspecified chronic kidney disease; E11.22 Type 2 diabetes mellitus with diabetic chronic kidney disease; N18.30 Chronic kidney disease, stage 3 unspecified; J44.9 Chronic obstructive pulmonary disease, unspecified; F17.210 Nicotine dependence, cigarettes, uncomplicated; Z88.8 Allergy status to other drugs, medicaments and biological substances; Z79.01 Long term (current) use of anticoagulants; Z79.82 Long term (current) use of aspirin; Z79.84 Long term (current) use of oral hypoglycemic drugs; Z79.899 Other long term (current) drug therapy; Z20.822 Contact with and (suspected) exposure to COVID-19
CPT/HCPCS: 0241U; 36415; 51702; 71046; 80053; 81001; 82947; 83605; 83735; 84100; 84145; 84484; 85025; 85610; 85730; 93005; 93010; 94644; 94664; 96372; 96374-59; 96376; 99285-25; A9270; G0378; J1644; J2930; J7509

== ENCOUNTER 2023-08-09 00:24 | Emergency (ER) | payer MEDICARE ==
[~2023-08-09] VITALS: Ht 167.6 cm; Wt 65.3 kg
[~2023-08-09 00:24] MED LIST changes: +AZIT250 PO
[2023-08-09 02:15] LABS: Source, Urine Foley catheter
[2023-08-09 02:48] LABS: BASOPHILS ABSOLUTE AUTO 0.07 K/mm3 (0.00-0.23); BASOPHILS PERCENT AUTO 1 % (0-2); EOSINOPHILS ABSOLUTE AUTO 0.47 K/mm3 (0.00-0.68); EOSINOPHILS PERCENT AUTO 3 % (0-6); Hematocrit 42.1 % (37.0-53.0); Hemoglobin 13.5 g/dL (13.5-17.5); IMMATURE GRAN ABSOLUTE AUTO 0.05 K/mm3 (0.00-0.10); IMMATURE GRAN PERCENT AUTO 0 % (0-1); LYMPHOCYTES ABSOLUTE AUTO 0.93 K/mm3 (0.84-5.20); LYMPHOCYTES PERCENT AUTO 7 % (21-46); MONOCYTES ABSOLUTE AUTO 0.84 K/mm3 (0.16-1.47); MONOCYTES PERCENT AUTO 6 % (4-13); Mean Corpuscular HGB 29.2 pg (26.0-34.0); Mean Corpuscular HGB Conc 32.1 g/dL (31.5-36.5); Mean Corpuscular Volume 91 fL (80-100); Mean Platelet Volume 10.1 fL (9.1-12.4); NEUTROPHILS ABSOLUTE AUTO 11.53 K/mm3 (1.96-9.15); NEUTROPHILS PERCENT AUTO 83 % (41-73); Platelet Count 296 K/mm3 (150-400); RDW Coefficient Variation 14.4 % (11.7-14.2); RDW Standard Deviation 48.1 fL (35.1-46.3); Red Blood Cell Count 4.63 M/mm3 (4.30-5.90); White Blood Cell Count 13.89 K/mm3 (4.00-11.30)
[2023-08-09 02:52] LABS: Blood, Urine 5+ (Neg); Glucose Qualitative, Urine Neg (Neg); Ketones, Urine 1+ (Neg); Leukocyte Esterase, Urine 3+ (Neg); Nitrite, Urine Pos (Neg); Protein, Urine 4+ (Neg); Urobilinogen, Urine 2+ (Normal)
[2023-08-09 02:59] LABS: Bilirubin, Urine 2+ (Neg)
[2023-08-09 03:00] LABS: Appearance, Urine Turbid (Clear); Color, Urine Brown (P-Yellow)
[2023-08-09 03:02] LABS: Bacteria Many /hpf; Red Blood Cells, Urine TNTC /hpf (0-2); Squamous Epithelial Cells Few /hpf (Few); White Blood Cells, Urine 25-50 /hpf (0-5)
[2023-08-09 03:03] LABS: Amorphous Light (0-Heavy); Mucus Light (0-Heavy)
[2023-08-09 03:08] LABS: Albumin, Blood 3.4 g/dL (3.4-5.0); Albumin/Globulin Ratio 0.9 (0.8-1.8); Bilirubin, Total 0.6 mg/dL (0.1-1.0); Bun/Creatinine Ratio 13.7 (12.0-20.0); Calcium, Blood 9.6 mg/dL (8.5-10.1); Creatinine, Blood 1.39 mg/dL (0.60-1.20); Globulin, Blood 3.8 g/dL (2.2-4.0); Potassium, Blood 4.9 mmol/L (3.5-5.5); Total Protein, Blood 7.2 g/dL (6.4-8.2)
[2023-08-09] MEDS ORDERED: CEPH500 PO (03:39)
[2023-08-09 03:44] VITALS: BP 163/75
== END 2023-08-09 04:25 | disposition home or self-care (01) ==
LOC: ER 00:24
PROVIDERS: Emergency Medicine
DX: T83.011A Breakdown (mechanical) of indwelling urethral catheter, initial encounter (principal); N39.0 Urinary tract infection, site not specified; I10 Essential (primary) hypertension; M54.9 Dorsalgia, unspecified; G89.29 Other chronic pain; J44.9 Chronic obstructive pulmonary disease, unspecified; F17.210 Nicotine dependence, cigarettes, uncomplicated; Z88.8 Allergy status to other drugs, medicaments and biological substances; Z79.01 Long term (current) use of anticoagulants; Z79.899 Other long term (current) drug therapy; Z79.82 Long term (current) use of aspirin; Z79.84 Long term (current) use of oral hypoglycemic drugs
CPT/HCPCS: 51702; 80053; 81001; 85025; 87086; 96374; 99283-25; J0696

== ENCOUNTER → 2023-09-07 | Outpatient (CLI) | payer MEDICARE ==
[~2023-09-07] MED LIST changes: +CEPH500 PO
[2023-09-07 08:11] LABS: BASOPHILS ABSOLUTE AUTO 0.05 K/mm3 (0.00-0.23); BASOPHILS PERCENT AUTO 0 % (0-2); EOSINOPHILS ABSOLUTE AUTO 0.97 K/mm3 (0.00-0.68); EOSINOPHILS PERCENT AUTO 8 % (0-6); Hematocrit 47.2 % (37.0-53.0); Hemoglobin 15.4 g/dL (13.5-17.5); IMMATURE GRAN ABSOLUTE AUTO 0.05 K/mm3 (0.00-0.10); IMMATURE GRAN PERCENT AUTO 0 % (0-1); LYMPHOCYTES ABSOLUTE AUTO 1.25 K/mm3 (0.84-5.20); LYMPHOCYTES PERCENT AUTO 11 % (21-46); MONOCYTES ABSOLUTE AUTO 0.85 K/mm3 (0.16-1.47); MONOCYTES PERCENT AUTO 7 % (4-13); Mean Corpuscular HGB 29.6 pg (26.0-34.0); Mean Corpuscular HGB Conc 32.6 g/dL (31.5-36.5); Mean Corpuscular Volume 91 fL (80-100); Mean Platelet Volume 10.2 fL (9.1-12.4); NEUTROPHILS ABSOLUTE AUTO 8.43 K/mm3 (1.96-9.15); NEUTROPHILS PERCENT AUTO 73 % (41-73); Platelet Count 281 K/mm3 (150-400); RDW Coefficient Variation 14.6 % (11.7-14.2); RDW Standard Deviation 48.1 fL (35.1-46.3); Red Blood Cell Count 5.21 M/mm3 (4.30-5.90)
[2023-09-07 08:25] LABS: Albumin, Blood 3.4 g/dL (3.4-5.0); Albumin/Globulin Ratio 0.9 (0.8-1.8); Bilirubin, Total 0.4 mg/dL (0.1-1.0); Bun/Creatinine Ratio 13.1 (12.0-20.0); Calcium, Blood 9.6 mg/dL (8.5-10.1); Creatinine, Blood 1.6 mg/dL (0.60-1.20); Globulin, Blood 3.7 g/dL (2.2-4.0); Potassium, Blood 4.7 mmol/L (3.5-5.5); Total Protein, Blood 7.1 g/dL (6.4-8.2)
== END ==
LOC: LAB 08:04 → LAB SHORT 08:04
PROVIDERS: Emergency Medicine
DX: R06.00 Dyspnea, unspecified (principal)
CPT/HCPCS: 80053; 83880; 84484; 85025

== ENCOUNTER 2024-01-28 23:37 | Emergency (ER) | payer MEDICARE ==
[~2024-01-28] VITALS: Ht 167.6 cm; Wt 65.8 kg
[2024-01-29 01:17] VITALS: BP 196/102
[2024-01-29] MEDS ORDERED: Incruse Ellipta 62.5 INH (01:47)
[2024-01-29] MEDS ORDERED: METOPROLOL SUCC25 MG PO (01:47)
[2024-01-29] MEDS ORDERED: DONEPEZIL HCL10 M1 PO (01:47)
[2024-01-29] MEDS ORDERED: ALBU90OI INH (01:48)
[2024-01-29] MEDS ORDERED: TRELEGY ELLIPT1 EACH INH (01:49)
[2024-01-29 01:52] LABS: Source, Urine Foley catheter
[2024-01-29 01:55] LABS: Bilirubin, Urine Neg (Neg); Blood, Urine 5+ (Neg); Glucose Qualitative, Urine Neg (Neg); Ketones, Urine 2+ (Neg); Leukocyte Esterase, Urine 3+ (Neg); Nitrite, Urine Pos (Neg); Protein, Urine 4+ (Neg); Urobilinogen, Urine NORM (Normal)
[2024-01-29 02:04] LABS: Appearance, Urine Turbid (Clear); Color, Urine Brown (P-Yellow)
[2024-01-29 02:06] LABS: Bacteria Many /hpf; Red Blood Cells, Urine TNTC /hpf (0-2); Squamous Epithelial Cells Not Seen /hpf (Few); White Blood Cells, Urine TNTC /hpf (0-5)
[2024-01-29] MEDS ORDERED: Cephalexin Monohydrate 500 MG Cap PO ONE (02:20)
== END 2024-01-29 03:14 | disposition home or self-care (01) ==
LOC: ER 23:37
PROVIDERS: Emergency Medicine
DX: T83.511A Infection and inflammatory reaction due to indwelling urethral catheter, initial encounter (principal); N30.90 Cystitis, unspecified without hematuria; Z88.8 Allergy status to other drugs, medicaments and biological substances; Z79.899 Other long term (current) drug therapy; Z79.82 Long term (current) use of aspirin; Z79.84 Long term (current) use of oral hypoglycemic drugs; I10 Essential (primary) hypertension; J44.9 Chronic obstructive pulmonary disease, unspecified; F17.210 Nicotine dependence, cigarettes, uncomplicated
CPT/HCPCS: 51702; 81001; 87077; 87086; 87186; 99284; A9270

== ENCOUNTER → 2024-03-08 | Outpatient (CLI) | payer MEDICARE ==
[~2024-03-08] MED LIST changes: +ALBU90OI INH; +DONEPEZIL HCL10 M1 PO; +Incruse Ellipta 62.5 INH; +METOPROLOL SUCC25 MG PO; +TRELEGY ELLIPT1 EACH INH
== END ==
LOC: LAB SHORT 11:20 → LAB 11:20
DX: R30.0 Dysuria (principal)
CPT/HCPCS: 87086